=== PATIENT | male | born 1945 | race Caucasian/White ===

== ENCOUNTER → 2017-11-23 | Outpatient (CLI) | payer OTHER | END | disposition home or self-care (01) | LOC: CFH 14:39 | PROVIDERS: ATTEND Family Medicine | DX: M48.05 Spinal stenosis, thoracolumbar region (principal); M47.895 Other spondylosis, thoracolumbar region; M79.602 Pain in left arm; M79.601 Pain in right arm | CPT/HCPCS: 72141 ==

== ENCOUNTER → 2018-04-06 | Outpatient (CLI) | payer OTHER ==
[~2018-04-06] MED LIST: OMNIPAQUE 350 MG/ML, 100ML BOTTLE ONE
== END | disposition home or self-care (01) ==
LOC: RAD 13:52
PROVIDERS: ATTEND Family Medicine
DX: N20.0 Calculus of kidney (principal); N28.89 Other specified disorders of kidney and ureter
CPT/HCPCS: 36415; 74160; 82565; Q9967

== ENCOUNTER → 2018-04-27 | Outpatient (CLI) | payer OTHER | END | disposition home or self-care (01) | LOC: CFH 11:35 | DX: Z13.6 Encounter for screening for cardiovascular disorders (principal); Z87.891 Personal history of nicotine dependence | CPT/HCPCS: 76706 ==

== ENCOUNTER 2018-05-14 09:18 | Inpatient (IN) | payer OTHER ==
[2018-05-11 15:07] LABS: ALANINE AMINOTRANSFERASE 20 U/L (12-78); ALBUMIN 3.8 g/dL (3.4-5.0); ALKALINE PHOSPHATASE 72 U/L (45-117); ANION GAP 10 mmol/L (5-15); BILIRUBIN,TOTAL 0.4 mg/dL (0.2-1.0); CALCIUM 9.2 mg/dL (8.5-10.1); CHLORIDE 105 mmol/L (98-107); CREATININE 0.71 mg/dL (0.7-1.3); TOTAL PROTEIN 7.7 g/dL (6.4-8.2)
[~2018-05-14] VITALS: Ht 172.7 cm; Wt 104.1 kg
[~2018-05-14 09:18] MED LIST changes: +ATOR20TA37 PO; +BUPIVACAINE/PF-EPI 0.5% 1:200K ONE; +GABA100C PO; +GLIM2TAB2 PO; +LIDOCAINE 1%-EPI 1:100K, 30ML ONE; +METF1000 PO; -OMNIPAQUE 350 MG/ML, 100ML BOTTLE ONE; +RANI150T23 PO
[2018-05-14] MEDS ORDERED: LACTATED RINGERS 1,000 ML IV SCH (09:44)
[2018-05-14 09:46] VITALS: BP 141/85
[2018-05-14] MEDS ORDERED: FENTANYL PF 250 MCG/5ML ONE (10:06)
[2018-05-14] MEDS ORDERED: MIDAZOLAM 1 MG/ML, 2ML ONE (10:06)
[2018-05-14] MEDS ORDERED: SODIUM CHLORIDE 0.9% 1,000 ML IV SCH (10:23)
[2018-05-14] MEDS ORDERED: morphine SULFATE 10 MG/ML, 1ML IV PRN (10:30)
[2018-05-14] MEDS ORDERED: ONDANSETRON 2MG/ML, 2ML IV PRN (10:30)
[2018-05-14] MEDS ORDERED: DIPHENHYDRAMINE 25 MG CAPSULE PO PRN (10:30)
[2018-05-14] MEDS ORDERED: ACETAMINOPHEN 325 MG TABLET PO PRN ×2 (10:30→13:00)
[2018-05-14] MEDS ORDERED: BISACODYL 10 MG SUPP PR PRN (10:30)
[2018-05-14] MEDS: HYDROcodone/APAP 10/325 MG TABLET PO SCH ×3 (10:30→17:51)
[2018-05-14] MEDS ORDERED: MAGNESIUM HYDROXIDE 8%, 30ML UDC PO PRN (10:30)
[2018-05-14] MEDS ORDERED: SENNA/DOCUSATE TABLET PO PRN (10:30)
[2018-05-14] MEDS ORDERED: PROMETHAZINE 25 MG/ML, 1ML IM PRN (10:30)
[2018-05-14] MEDS ORDERED: ROPIvacaine/PF 0.5%, 20 ML ONE (10:54)
[2018-05-14] MEDS ORDERED: BUPIVACAINE/PF 0.5% ONE (10:54)
[2018-05-14] MEDS ORDERED: EPHEDRINE 50 MG/ML, 1ML ONE (12:22)
[2018-05-14] MEDS ORDERED: SUCCINYLCHOLINE 20 MG/ML, 10ML ONE (12:22)
[2018-05-14] MEDS ORDERED: ONDANSETRON 2MG/ML, 2ML ONE (12:22)
[2018-05-14] MEDS ORDERED: DEXAMETHASONE 4 MG/ML, 1ML ONE (12:22)
[2018-05-14] MEDS ORDERED: PROPOFOL 10 MG/ML, 20ML ONE (12:22)
[2018-05-14] MEDS ORDERED: CLINDAMYCIN 150 MG/ML, 6ML ONE (12:48)
[2018-05-14] MEDS ORDERED: OXYcodone 5 MG/5 ML ORAL.SOL UDC PO PRN (13:00)
[2018-05-14] MEDS ORDERED: LABETALOL 5MG/ML, 20ML IV PRN (13:00)
[2018-05-14] MEDS ORDERED: hydrALAzine 20 MG/ML, 1ML IV PRN (13:00)
[2018-05-14] MEDS ORDERED: ALBUTEROL SULFATE 2.5 MG/3 ML NPPB PRN (13:00)
[2018-05-14] MEDS ORDERED: PROMETHAZINE 25 MG/ML, 1ML IV PRN (13:00)
[2018-05-14] MEDS ORDERED: OXYcodone 5 MG/5 ML ORAL.SOL UDC ONE ×2 (14:22→14:25)
[2018-05-14] MEDS ORDERED: FENTANYL PF 100 MCG/2ML ONE ×2 (14:22→15:12)
[2018-05-14] MEDS: FENTANYL PF 100 MCG/2ML IV PRN ×2 (14:25→14:44)
[2018-05-14] MEDS ORDERED: HYDROmorphone 2 MG/ML, 1ML ONE ×2 (14:40→15:12)
[2018-05-14] MEDS: HYDROmorphone 1 MG/ML, 1ML IV PRN ×5 (14:42→15:05)
[2018-05-14] MEDS ORDERED: GABAPENTIN 100 MG CAPSULE PO SCH (16:00)
[2018-05-14] MEDS ORDERED: CEFAZOLIN PMX 2GM/50ML 50 ML IVPB SCH (16:30)
[2018-05-14] MEDS ORDERED: CEFAZOLIN 2,000 MG in SODIUM CHLORIDE 0.9% 50 ML IV SCH (16:30)
[2018-05-14] MEDS ORDERED: GLIMEPIRIDE 1 MG TABLET PO SCH (17:00)
[2018-05-14] MEDS ORDERED: metFORMIN 500 MG TABLET PO SCH (17:00)
[2018-05-14] MEDS ORDERED: DOCUSATE 100 MG CAPSULE PO SCH (21:00)
[2018-05-14] MEDS ORDERED: ATORVASTATIN 20 MG TABLET PO SCH (21:00)
[2018-05-14] MEDS ORDERED: FAMOTIDINE 20 MG TABLET PO SCH (21:00)
== END 2018-05-14 19:00 | disposition home or self-care (01) | DRG 483 ==
LOC: ORIP 09:18 → 4NOR 15:40
PROVIDERS: ADMIT Orthopaedic Surgery; ATTEND Orthopaedic Surgery
PROC: 0LS30ZZ Reposition Right Upper Arm Tendon, Open Approach (ICD-10-PCS; 2018-05-14)
PROC: 3E0T3BZ Introduction of Anesthetic Agent into Peripheral Nerves and Plexi, Percutaneous Approach (ICD-10-PCS; 2018-05-14)
PROC: 0RRJ00Z Replacement of Right Shoulder Joint with Reverse Ball and Socket Synthetic Substitute, Open Approach (ICD-10-PCS; principal; 2018-05-14 12:15)
DX: M12.811 Other specific arthropathies, not elsewhere classified, right shoulder (principal); I10 Essential (primary) hypertension; E11.9 Type 2 diabetes mellitus without complications; E78.5 Hyperlipidemia, unspecified; Z87.891 Personal history of nicotine dependence; S46.211A Strain of muscle, fascia and tendon of other parts of biceps, right arm, initial encounter; X58.XXXA Exposure to other specified factors, initial encounter; Y93.89 Activity, other specified; Y92.89 Other specified places as the place of occurrence of the external cause; Y99.8 Other external cause status
CPT/HCPCS: 36415; 80053; 82962; 87081; 93005; C1713; C1776; G0378; J1100; J1170; J2250; J2405; J2704; J2795; J3010; J3490; C1769; J0330; J7030; J7120

== ENCOUNTER 2019-05-30 10:45 | Emergency (ER) | payer MEDICARE ==
[~2019-05-30] VITALS: Ht 175.3 cm; Wt 104.9 kg
[~2019-05-30 10:45] MED LIST changes: -BUPIVACAINE/PF-EPI 0.5% 1:200K ONE; -GLIM2TAB2 PO; +GLIM2TAB3 PO; -LIDOCAINE 1%-EPI 1:100K, 30ML ONE; +RANI-467 PO; -RANI150T23 PO
--- NOTE | 2019-05-30 11:32 | NUR ---
Pt to 16 from lobby
[2019-05-30] MEDS ORDERED: SODIUM CHLORIDE FLUSH 10ML SYR IVF ONE (12:00)
[2019-05-30 12:09] LABS: BASOPHILS # (AUTO) 0.04 x10^3/uL (0-0.1); BASOPHILS % (AUTO) 1 % (0-1); EOSINOPHILS # (AUTO) 0.22 x10^3/uL (0-0.4); EOSINOPHILS % (AUTO) 3 % (1-7); LYMPHOCYTES % (AUTO) 21 % (22-44); MD NO; MEAN CORPUSCULAR HEMOGLOBIN 33.3 pg (27.5-34.5); MEAN CORPUSCULAR HGB CONC 32.7 g/dL (33.2-36.2); MEAN CORPUSCULAR VOLUME 101.8 fL (81-97); MEAN PLATELET VOLUME 8.7 fL (7.4-10.4); MONOCYTES % (AUTO) 6 % (2-9); NEUTROPHILS % (AUTO) 70 % (42-75); PLATELET COUNT 312 x10^3/uL (130-400); RED CELL DISTRIBUTION WIDTH 14.5 % (9.4-14.8)
--- NOTE | 2019-05-30 12:12 | NUR ---
LUNCH RN: PT HERE FOR GENERALIZED ABD PAIN. PT REPORTS THAT IT HAS BEEN PRESENT FOR A WHILE. PT REPORTS NO N/V/D. PT DENIES ANY BLOOD IN STOOL OR VOMITTING.
[2019-05-30 12:16] LABS: ALBUMIN 3.6 g/dL (3.4-5.0); ANION GAP 6 mmol/L (5-15); CALCIUM 8.7 mg/dL (8.5-10.1); CHLORIDE 106 mmol/L (98-107)
[2019-05-30 12:19] LABS: ALANINE AMINOTRANSFERASE 16 U/L (12-78); ALKALINE PHOSPHATASE 75 U/L (45-117); BILIRUBIN,TOTAL 0.8 mg/dL (0.2-1.0); CREATININE 0.84 mg/dL (0.7-1.3); TOTAL PROTEIN 7.2 g/dL (6.4-8.2)
--- NOTE | 2019-05-30 12:23 | NUR ---
report received from JONATHAN Valentin. Pt states he has right lower abd pain that radiates to right upper abd and right flank. pt states it is 7/10 in intensity at this time which is his baseline. pt is a&o, resps even and unlabored, nadn. at bedside. awaiting CT and dispo at this time.
[2019-05-30 12:36] LABS: MICROSCOPIC NOT IND
[2019-05-30 12:40] LABS: CULTURE INDICATED? NO
[2019-05-30] MEDS ORDERED: OMNIPAQUE 350 MG/ML, 100ML BOTTLE ONE (12:45)
[2019-05-30 13:14] VITALS: BP 131/71
--- NOTE | 2019-05-30 13:15 | NUR ---
pt resting on gurney, a&o, resps even and unlabored. no change in chronic abd pain at this time. all results back, chart up for recheck. awaiting MD and dispo.
== END 2019-05-30 14:04 | disposition home or self-care (01) ==
LOC: ED 14:00
DX: M54.14 Radiculopathy, thoracic region (principal); R10.11 Right upper quadrant pain; E11.9 Type 2 diabetes mellitus without complications
CPT/HCPCS: 36415; 74177; 80053; 81003; 83690; 85025; 99284; Q9967

== ENCOUNTER → 2019-10-17 | Outpatient (CLI) | payer MEDICARE ==
[~2019-10-17] MED LIST changes: +GADOTERATE 10 MMOL/20 ML SYR ONE; -GLIM2TAB3 PO; +GLIM2TAB7 PO
== END | disposition home or self-care (01) ==
LOC: CFH 09:54
PROVIDERS: ATTEND Psychiatry & Neurology Neurology
DX: M47.24 Other spondylosis with radiculopathy, thoracic region (principal); M48.04 Spinal stenosis, thoracic region; G95.9 Disease of spinal cord, unspecified; M51.14 Intervertebral disc disorders with radiculopathy, thoracic region
CPT/HCPCS: 72157; A9575

== ENCOUNTER → 2019-11-10 | Outpatient (CLI) | payer MEDICARE ==
[~2019-11-10] MED LIST changes: -GADOTERATE 10 MMOL/20 ML SYR ONE; +REGADENOSON 0.4 MG/5 ML SYRINGE ONE
== END | disposition home or self-care (01) ==
LOC: CFH 12:34
PROVIDERS: ATTEND Internal Medicine Cardiovascular Disease
DX: Z01.810 Encounter for preprocedural cardiovascular examination (principal); I21.19 ST elevation (STEMI) myocardial infarction involving other coronary artery of inferior wall; E11.9 Type 2 diabetes mellitus without complications
CPT/HCPCS: 78452; 93017; A9502; J2785

== ENCOUNTER 2019-12-21 10:34 | Day surgery (SDC) | payer MEDICARE ==
[~2019-12-21] VITALS: Ht 175.3 cm; Wt 100.0 kg
[~2019-12-21 10:34] MED LIST changes: +APIX5TAB PO; +ATOR40TA78 PO; +DULO60CA7 PO; +HYDR-3246 PO; +METH500T7 PO; +METO50TA82 PO; +OMEP20TA62 PO; -REGADENOSON 0.4 MG/5 ML SYRINGE ONE
[2019-12-21 11:16] VITALS: BP 146/83
== END 2019-12-21 13:04 | disposition home or self-care (01) ==
LOC: CACL 10:34
PROVIDERS: ATTEND Internal Medicine Cardiovascular Disease
DX: I48.91 Unspecified atrial fibrillation (principal); Z53.8 Procedure and treatment not carried out for other reasons; E78.2 Mixed hyperlipidemia; E11.9 Type 2 diabetes mellitus without complications; Z79.01 Long term (current) use of anticoagulants; Z79.899 Other long term (current) drug therapy; Z79.82 Long term (current) use of aspirin; Z79.84 Long term (current) use of oral hypoglycemic drugs; Z87.891 Personal history of nicotine dependence; Z72.89 Other problems related to lifestyle
CPT/HCPCS: 93005

== ENCOUNTER 2020-05-04 08:48 | Day surgery (SDC) | payer MEDICARE ==
[~2020-05-04] VITALS: Ht 175.3 cm; Wt 102.3 kg
[2020-05-04] MEDS ORDERED: LIDOCAINE 2%, 20ML ONE (09:53)
== END 2020-05-04 10:32 | disposition home or self-care (01) ==
LOC: CACL 08:48
PROVIDERS: ATTEND Internal Medicine Cardiovascular Disease
DX: I48.91 Unspecified atrial fibrillation (principal); I10 Essential (primary) hypertension; E78.2 Mixed hyperlipidemia; E78.00 Pure hypercholesterolemia, unspecified; E11.9 Type 2 diabetes mellitus without complications; F12.90 Cannabis use, unspecified, uncomplicated; Z79.84 Long term (current) use of oral hypoglycemic drugs; Z79.82 Long term (current) use of aspirin; Z79.01 Long term (current) use of anticoagulants; Z72.89 Other problems related to lifestyle; Z87.891 Personal history of nicotine dependence
CPT/HCPCS: 33285; C1764

== ENCOUNTER 2021-02-06 10:03 | Outpatient (CLI) | payer MEDICARE ==
[~2021-02-06 10:03] MED LIST changes: -HYDR-3246 PO; +HYDR-3248 PO; +METH-639 PO; -METH500T7 PO
[2021-02-06 10:46] LABS: BASOPHILS % (AUTO) 0 % (0-1); EOSINOPHILS % (AUTO) 3 % (1-7); LYMPHOCYTES % (AUTO) 27 % (22-44); MEAN CORPUSCULAR HEMOGLOBIN 34.5 pg (27.5-34.5); MEAN PLATELET VOLUME 7.6 fL (7.4-10.4); MONOCYTES % (AUTO) 9 % (2-9); NEUTROPHILS % (AUTO) 61 % (42-75); PLATELET COUNT 318 x10^3/uL (130-400); RED BLOOD COUNT 4.32 x10^6/uL (4.38-5.82); RED CELL DISTRIBUTION WIDTH 14.1 % (9.4-14.8)
[2021-02-06 10:54] LABS: ALANINE AMINOTRANSFERASE 18 U/L (12-78); ALBUMIN 3.5 g/dL (3.4-5.0); ANION GAP 6 mmol/L (5-15); CALCIUM 9.2 mg/dL (8.5-10.1); CHLORIDE 101 mmol/L (98-107); CREATININE 0.71 mg/dL (0.7-1.3)
[2021-02-06 11:21] LABS: ALKALINE PHOSPHATASE 74 U/L (45-117); BILIRUBIN,TOTAL 0.7 mg/dL (0.2-1.0); FOLATE LEVEL 19.4 ng/mL (3.1-17.5); TOTAL PROTEIN 7.1 g/dL (6.4-8.2)
== END 2021-02-06 23:59 | disposition home or self-care (01) ==
LOC: LAB 10:03
PROVIDERS: ATTEND Internal Medicine
DX: D68.69 Other thrombophilia (principal); E78.2 Mixed hyperlipidemia; I48.91 Unspecified atrial fibrillation; E11.65 Type 2 diabetes mellitus with hyperglycemia; E55.9 Vitamin D deficiency, unspecified; I10 Essential (primary) hypertension; I48.20 Chronic atrial fibrillation, unspecified; K59.00 Constipation, unspecified; R31.9 Hematuria, unspecified; R53.83 Other fatigue; R63.4 Abnormal weight loss; G47.39 Other sleep apnea; R00.1 Bradycardia, unspecified
CPT/HCPCS: 36415; 80053; 80162; 82607; 82746; 83036; 85025